=== PATIENT | male | born 1940 | race Caucasian/White ===

== ENCOUNTER 2016-08-03 06:47 | Day surgery (SDC) | payer MEDICARE, BC ==
[~2016-08-03 06:47] MED LIST: KETOROLAC TROMETHAMINE 0.45% 4 DROP/0.4 ML DROPERETTE OS PRN
[2016-08-03] MEDS: TETRACAINE HCL 0.5% OPH SOLN 0.6 ML DROPERETTE OS PRN ×3 (07:03→07:52)
[2016-08-03] MEDS: TROPICAMIDE 1% OPH SOLN 3 ML OS PRN ×3 (07:04→07:30)
[2016-08-03] MEDS: CYCLOPENTOLATE 0.2%/PHENYLEPHRINE 1% OPH SOLN 2 ML OS PRN ×3 (07:04→07:31)
[2016-08-03] MEDS: BESIFLOXACIN HCL 0.6% OPH SUSP 5 ML BOTTLE OS PRN ×4 (07:05→08:12)
[2016-08-03] MEDS ORDERED: EPINEPHRINE INJ/PF 1 MG/1 ML AMPULE ONE (07:09)
[2016-08-03] MEDS ORDERED: CHONDR SU A NA/HYALUR INTRAOC KIT (SURGICARE) ONE (07:09)
[2016-08-03] MEDS ORDERED: LIDOCAINE 1% INJ-PF (10 MG/ML) 30 ML SDV ONE ×2 (07:09→07:10)
[2016-08-03] MEDS ORDERED: FENTANYL CITRATE INJ/PF 100 MCG/2 ML AMPUL ONE (07:23)
[2016-08-03] MEDS ORDERED: MIDAZOLAM 2 MG/2 ML INJ ONE (07:23)
[2016-08-03] MEDS: TOBRAMYCIN SULFATE/DEXAMETH OPH OINTMENT 3.5 GM ONE ×2 (08:12)
== END 2016-08-03 09:01 | disposition home or self-care (01) ==
LOC: SC 06:47
PROVIDERS: ATTEND Ophthalmology
PROC: 08RK3JZ Replacement of Left Lens with Synthetic Substitute, Percutaneous Approach (ICD-10-PCS; principal; 2016-08-03 07:45)
DX: H25.12 Age-related nuclear cataract, left eye (principal); Z96.1 Presence of intraocular lens; E11.9 Type 2 diabetes mellitus without complications; I10 Essential (primary) hypertension; E78.00 Pure hypercholesterolemia, unspecified; I48.91 Unspecified atrial fibrillation; Z79.899 Other long term (current) drug therapy; Z79.01 Long term (current) use of anticoagulants; Z87.891 Personal history of nicotine dependence
CPT/HCPCS: 82962; 66984; V2630; J2250; J3490 ×3; A9270; J0171; J3010; 142

== ENCOUNTER → 2017-10-04 | Outpatient (CLI) | payer MEDICARE, BC ==
--- NOTE | 2017-10-04 16:33 | XCELERA REPORT ---
[address] [address] Lower Extremity Arterial Evaluation Name: BARB SHORT Age: 77 yrs Gender: Male : 1940 Patient Status: Preadmit Patient Location: Study Date: 10/04/2017 02:52 PM Procedure: A color flow and duplex scan of the lower extremity arteries was performed bilaterally with velocity and waveform anaylsis. Ankle brachial indicies performed. Reason For Study: PVD Ordering Physician: YASSINE PORTILLO Performed By: Shirley Jiang Measurements and Calculations Right Left PAPER SALES REPRESENTATIVE PSV 97.0 93.9 cm/sec Prox PFA PSV -55.0 -44.7 cm/sec Prox SFA PSV 65.3 67.2 cm/sec Mid SFA PSV -72.7 -80.5 cm/sec Dist SFA PSV -66.8 -51.9 cm/sec Prox Pop A PSV 48.3 48.3 cm/sec Dist CHOCO PSV 71.9 73.5 cm/sec Prox ASSOCIATE MEDICAL DIRECTOR PSV 27.3 37.5 cm/sec Mid ASSOCIATE MEDICAL DIRECTOR PSV 44.0 58.7 cm/sec Dist ASSOCIATE MEDICAL DIRECTOR PSV 28.2 21.8 cm/sec Ricardo Pedis PSV 73.9 78.1 cm/sec Right Side Arterial Evaluation Normal velocity and triphasic waveforms noted in the Common Femoral artery. Biphasic to the Anterior Tibial artery. Monophasic in the Posterior Tibial artery. 20-49 % stenosis at the Femoral artery. 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 Ankle Brachial index is 0.6 in the PT, non compressible DP. PPG's Blunted, barely multiphasic. Left Side Arterial Evaluation Normal velocity and triphasic waveforms noted in the Common Femoral artery. Biphasic to the Anterior Tibial artery. Monophasic in the Posterior Tibial artery. 20-49 % stenosis at the Femoral artery. 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 Ankle Brachial index not obtainable, , non compressible. PPG's Blunted, barely monophasic. 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 : YASSINE PORTILLO > Agustin Bishop
== END ==
LOC: SP 14:30
PROVIDERS: ATTEND Podiatrist Foot & Ankle Surgery
DX: I73.9 Peripheral vascular disease, unspecified (principal)
CPT/HCPCS: 93925